=== PATIENT | female | born 1950 | race Caucasian/White ===

== ENCOUNTER 2021-05-09 23:59 | Observation (INO) ==
[2021-05-10 00:27] LABS: Basophils % 0.3 %; Eosinophils # 0.1 K/mcL (0.0-0.6); Eosinophils % 2.1 %; Hematocrit 34.4 % (35.3-44.9); Hemoglobin 11.2 g/dL (11.5-15.4); Immature Granulocytes % 0.3 % (0-4); Lymphocytes # 1.9 K/mcL (0.6-4.6); Lymphocytes % 28.6 %; Mean Corpuscular HGB Conc 32.6 g/dL (31.6-35.5); Mean Corpuscular Hemoglobin 31.3 pg (28.0-33.3); Mean Corpuscular Volume 96.1 fL (83.0-100.0); Mean Platelet Volume 9.3 fL (9.4-12.4); Monocytes # 0.7 K/mcL (0.0-1.3); Monocytes % 10.3 %; Neutrophils # 3.9 K/mcL (1.6-8.9); Platelet Count 216 K/mcL (140-400); Red Blood Count 3.58 M/mcL (3.82-4.97); Red Cell Distribution Width 12.4 % (11.5-14.5); Segmented Neutrophils % 58.4 %; White Blood Count 6.7 K/mcL (4.3-11.1)
[2021-05-10 00:46] LABS: BUN/Creatinine Ratio 23 (6-26); Blood Urea Nitrogen 17 mg/dL (8-23); Calcium 8.9 mg/dL (8.6-10.3); Carbon Dioxide 28 mEq/L (23-29); Chloride 102 mEq/L (98-107); Glucose 118 mg/dL (70-105); Osmolality,Calculated 291 (280-300); Potassium 3.5 mEq/L (3.5-5.1); Sodium 139 mEq/L (136-145); eGFR For African Americans > 60 (> 60); eGFR For Non-African Americans > 60 (> 60)
[2021-05-10 00:47] LABS: Troponin I < 0.03 ng/mL (< 0.04)
[2021-05-10] MEDS ORDERED: Naloxone 0.4 MG/ML INJ IVP PRN (02:43)
[2021-05-10] MEDS ORDERED: Morphine Sulfate 2 MG/ML SYRINGE IVP PRN (05:42)
[2021-05-10] MEDS ORDERED: Nitroglycerin 0.4 MG TAB.SUBL SL PRN (05:43)
[2021-05-10] MEDS ORDERED: Regadenoson 0.4 MG/5 ML SYRINGE IVP ONE (06:31)
[2021-05-10] MEDS ORDERED: Isovue-370 500 ML BOTTLE IVP ONE (14:49)
[2021-05-10] MEDS: Metoprolol XL (24 HR) Succ 25 MG TAB.ER.24H PO SCH (21:07)
[2021-05-11 03:12] LABS: Basophils % 0.5 %; Eosinophils # 0.1 K/mcL (0.0-0.6); Eosinophils % 3.2 %; Hematocrit 33.5 % (35.3-44.9); Hemoglobin 10.8 g/dL (11.5-15.4); Immature Granulocytes % 0.2 % (0-4); Lymphocytes # 1.3 K/mcL (0.6-4.6); Mean Corpuscular HGB Conc 32.2 g/dL (31.6-35.5); Mean Corpuscular Hemoglobin 31.1 pg (28.0-33.3); Mean Corpuscular Volume 96.5 fL (83.0-100.0); Mean Platelet Volume 9.4 fL (9.4-12.4); Monocytes # 0.4 K/mcL (0.0-1.3); Monocytes % 8.1 %; Neutrophils # 2.6 K/mcL (1.6-8.9); Platelet Count 195 K/mcL (140-400); Red Blood Count 3.47 M/mcL (3.82-4.97); Red Cell Distribution Width 12.7 % (11.5-14.5); White Blood Count 4.4 K/mcL (4.3-11.1)
[2021-05-11 03:32] LABS: BUN/Creatinine Ratio 29 (6-26); Blood Urea Nitrogen 15 mg/dL (8-23); Calcium 8.5 mg/dL (8.6-10.3); Carbon Dioxide 29 mEq/L (23-29); Chloride 103 mEq/L (98-107); Glucose 92 mg/dL (70-105); Magnesium 2.2 mg/dL (1.6-2.6); Osmolality,Calculated 284 (280-300); Potassium 3.9 mEq/L (3.5-5.1); Sodium 137 mEq/L (136-145); eGFR For African Americans > 60 (> 60); eGFR For Non-African Americans > 60 (> 60)
[2021-05-11 03:47] VITALS: TEMP 98.2
[2021-05-11] MEDS: Metoprolol XL (24 HR) Succ 25 MG TAB.ER.24H PO SCH (07:17)
[2021-05-11 10:03] VITALS: PULSE 60
[2021-05-11 11:22] VITALS: BP 125/73; O2SAT 96
== END 2021-05-11 12:46 | disposition home health service (06) ==
LOC: 2ANU 23:59 → EMEROOARM 23:59 → MERGE 05-10 02:00 → SUATTDRO 05-10 02:00 → 2ANU 05-10 03:03
PROVIDERS: ADMIT Internal Medicine; ATTEND Internal Medicine